=== PATIENT | male | born 1945 | race Caucasian/White ===

== ENCOUNTER 2024-03-16 09:22 | Emergency (ER) | payer MEDICARE, SELFPAY ==
--- NOTE | 2024-03-16 09:51 | ECG_ITS ---
[facility] Test Date: 2024-03-16 Pat Name: Jah Wu Department: Room: Gender: Male Licensed Nurse Practitioner: : 1945 Requested By: Tim Pierce Order Number: [id number] Izzy MD: Thai Baldwin M.D. Measurements Intervals [facility] Rate: 64 P: 34 WA: 141 QRS: 18 QRSD: 102 T: 40 QT: 391 QTc: 405 Interpretive Statements SINUS RHYTHM No previous ECG available for comparison Electronically Signed On 03-16-2024 22:26:28 CDT by Thai Baldwin M.D. [id number]
[2024-03-16 09:53] VITALS: BP 134/66; PULSE 65; RESP 20; TEMP 37; O2SAT 97; BMI 27.3
--- NOTE | 2024-03-16 10:09 | CTR_ITS ---
PROCEDURE INFORMATION: Exam: CT Head Without Contrast Exam date and time: 03/16/2024 10:10 AM Age: 78 years old Clinical indication: Stroke-like symptoms; Dizziness/giddiness; Additional info: Symptoms of acute stroke PT reports dizziness, nausea, and difficulty ambulating. PT states symptoms started at approx 0000 last night. PT sttes last well know was approx 1400 yesterday, PT is unsure of exact time of dizziness onset. PT bilateral in home tutor equal, TECHNIQUE: Imaging protocol: Computed tomography of the head without contrast. Radiation optimization: All CT scans at this facility use at least one of these dose optimization techniques: automated exposure control; mA and/or kV adjustment per patient size (includes targeted exams where dose is matched to clinical indication); or iterative reconstruction. Other technique: STROKE PROTOCOL was implemented. COMPARISON: No relevant prior studies available. RADIATION DOSE METRICS: Total DLP (mGy-cm): 1217.8 FINDINGS: Brain: There is moderate cerebral atrophy. There is mild diffuse heterogeneity of the white matter attenuation, consistent with chronic white matter ischemic changes. Negative for hemorrhage. Negative for mass. Negative for mass effect on the brain. Randle matter and white matter interfaces are unremarkable. Cerebral ventricles: No ventriculomegaly. Paranasal sinuses: Heterogeneous circumscribed mostly hyperdense mucosal lesion in the left sphenoid sinus. No fluid levels. Mastoid air cells: Visualized mastoid air cells are well aerated. Bones: Unremarkable. No acute fracture. Soft tissues: Unremarkable. CT/CT head thrombolytic [id number] IMPRESSION: Negative for acute intracranial pathology. ASSESSMENT: ASPECTS ([place] Stroke Program Early CT Score) is 10.
[2024-03-16 10:14] LABS: Glucose Point of Care 145 mg/dL (70-110)
[2024-03-16 10:40] LABS: Basophils % 0.2 %; Eosinophils # 0.1 10^3/uL (0.0-0.8); Eosinophils % 0.4 %; Hematocrit 46.8 % (37-53); Lymphocytes % 7.4 %; Mean Corpuscular HGB Conc 33.3 g/dL (30-55); Mean Corpuscular Hemoglobin 30.5 pg (27-33); Mean Corpuscular Volume 91.4 fl (82-101); Mean Platelet Volume 9.5 fL (7.4-10.4); Monocytes # 0.9 10^3/uL (0.2-0.9); Monocytes % 6.7 %; Neutrophils % 84.8 %; Nucleated Red Blood Cells % 0 %; Platelet Count 203 10^3/cmm (157-399); Red Blood Count 5.12 10^6/uL (3.85-5.65); Red Cell Distribution Width 12.4 % (12.1-15.1)
--- NOTE | 2024-03-16 10:46 | W.ED.DIZZY ---
HPI - Dizziness General: Chief Complaint: Dizziness Stated Complaint: reffer by rosa galindo Time Seen by Provider: 03/16/24 09:30 History of Present Illness: HPI Narrative: 78-year-old male presents to the emergency room states that she has dizziness and vertigo symptoms that began last night around midnight. He states he was not feeling well around 2 PM but did not have any dizziness or difficulty with speech or balance. Initially presented to Associated symptoms: Denies chest pain or chills Related Data Home Medications Medication Instructions Recorded Confirmed lisinopril 10 mg tablet 10 mg PO DAILY 03/16/24 03/16/24 metformin 500 mg tablet,extended 500 mg PO BID 03/16/24 03/16/24 release 24 hr silver sulfadiazine 1 % topical 1 applic topical BID 03/16/24 03/16/24 cream sulfamethoxazole 800 1 tab PO Q12H 03/16/24 03/16/24 mg-trimethoprim 160 mg tablet tamsulosin 0.4 mg capsule 1 mg PO DAILY 03/16/24 03/16/24 Previous Rx's Medication Instructions Recorded meclizine 25 mg tablet 25 mg PO QID PRN dizziness #14 tabs 03/16/24 Allergies Allergy/AdvReac Type Severity Reaction Status Date / Time No Known Allergies Allergy Verified 03/16/24 10:07 Review of Systems Const: Denies: fever(s) or chills Card: Denies: chest pain Resp: Denies: dyspnea GI: Denies: abdominal pain : Denies: dysuria, urinary frequency or urinary urgency Musc: Denies: neck pain or back pain Skin/Breast: Denies: rash Physical Exam Const: COMMON NORMALS: no acute distress GENERAL APPEARANCE: cooperative and comfortable ORIENTATION/CONSCIOUSNESS: Yes awake, Yes oriented to person, Yes oriented to place and Yes oriented to time HENMT: COMMON NORMALS: normocephalic, atraumatic and hearing grossly normal bilaterally HEAD & SCALP: normocephalic and atraumatic Resp: COMMON NORMALS: normal respiratory effort, No retractions, No use of accessory muscles and clear to auscultation bilaterally AUSCULTATION: clear to auscultation bilaterally Cardio: COMMON NORMALS: regular rate, regular rhythm and No murmurs present (Cardio) RATE: regular rate RHYTHM: regular rhythm GI: COMMON NORMALS: Soft to palpation and No hepatosplenomegaly present AUSCULTATION: Yes normoactive bowel sounds PALPATION: Yes Soft to palpation, No Tenderness to palpation present (GI), No Guarding due to palpation present (GI) and Yes No hepatosplenomegaly present Extremity: COMMON NORMALS: normal to inspection, capillary refill normal, no clubbing, cyanosis or edema, no calf tenderness and no pedal edema Neuro: SENSORIUM/ORIENTATION: Yes oriented to person, Yes oriented to place and Yes oriented to time Skin: COMMON NORMALS: no rashes or lesions noted GENERAL SKIN EXAM: no rashes or lesions noted Course Vital Signs: Vital signs: Vital Signs Temperature 98.6 F 03/16/24 09:53 Pulse Rate 81 03/16/24 13:31 Respiratory Rate 20 H 03/16/24 09:53 Blood Pressure 133/64 03/16/24 13:31 Pulse Oximetry 98 03/16/24 13:31 Oxygen Delivery Me thod Room Air 03/16/24 12:30 MDM - Dizziness Medical Decision Making Patient initially called the stroke alert he is outside the window for any kind of thrombolytics. He has a relatively normal exam the stroke score is 0. After evaluation completed we ambulated he did so without difficulty he is able to reproduce his dizziness with motion of his head particular looking to the left or to the right. Will discharge patient only use meclizine as needed. Do not believe patient an acute stroke I think this is more of positional vertigo which is reproducible initially and could tether to be after workup was completed. Lab Data 03/16/24 10:34 03/16/24 10:[address] 03/16/24 10:09 IMPRESSION: Negative for acute intracranial pathology. ASSESSMENT: ASPECTS ([place] Stroke Program Early CT Score) is 10. Laboratory Results WBC 13.20 10^3/uL (3.29-11.43) H 03/16/24 10:34 RBC 5.12 10^6/uL (3.85-5.65) 03/16/24 10:34 Hgb 15.60 g/dL (11.27-16.99) 03/16/24 10:34 Hct 46.8 % (37-53) 03/16/24 10:34 MCV 91.4 fl (82-101) 03/16/24 10:34 MCH 30.5 pg (27-33) 03/16/24 10:34 MCHC 33.3 g/dL (30-55) 03/16/24 10:34 RDW 12.4 % (12.1-15.1) 03/16/24 10:34 Plt Count 203 10^3/cmm (157-399) 03/16/24 10:34 MPV 9.5 fL (7.4-10.4) 03/16/24 10:34 Neut % (Auto) 84.8 % 03/16/24 10:34 Lymph % (Auto) 7.4 % 03/16/24 10:34 [place] % (Auto) 6.7 % 03/16/24 10:34 Eos % (Auto) 0.4 % 03/16/24 10:34 Baso % (Auto) 0.2 % 03/16/24 10:34 Neut # (Auto) 11.20 10^3/uL (1.8-7.7) H 03/16/24 10:34 Lymph # (Auto) 1.0 10^3/uL (0.8-4.8) 03/16/24 10:34 [place] # (Auto) 0.9 10^3/uL (0.2-0.9) 03/16/24 10:34 Eos # (Auto) 0.1 10^3/uL (0.0-0.8) 03/16/24 10:34 Baso # (Auto) 0.0 10^3/uL (0.0-0.1) 03/16/24 10:34 Nucleated RBC % (auto) 0 % 03/16/24 10:34 Nucleated RBCs # 0.0 /100WBC 03/16/24 10:34 PT 14.80 SECONDS (12.1-14.9) 03/16/24 10:34 INR 1.13 (0.8-1.2) 03/16/24 10:34 APTT 39.6 SECONDS (23.9-36.7) H 03/16/24 10:34 Sodium 133 mmol/L (136-145) L 03/16/24 10:34 Potassium 4.2 mmol/L (3.5-5.1) 03/16/24 10:34 Chloride 96 mmol/L (98-107) L 03/16/24 10:34 Carbon Dioxide 25 mmol/L (22-29) 03/16/24 10:34 Anion Gap 16.2 (5-19) 03/16/24 10:34 BUN 10 mg/dL (8-23) 03/16/24 10:34 Creatinine 0.9 mg/dL (0.7-1.2) 03/16/24 10:34 GFR Calculation Not Reportable 03/16/24 10:34 Glucose 161 mg/dL (65-115) H 03/16/24 10:34 POC Glucose 145 mg/dL (70-110) H 03/16/24 10:10 Calculated Osmolality 279 mOsm/kg (285-295) L 03/16/24 10:34 Calcium 9.2 mg/dL (8.5-10.5) 03/16/24 10:34 Total Bilirubin 1.5 mg/dL (0.15-1.2) H 03/16/24 10:34 AST 18 U/L (0-40) 03/16/24 10:34 ALT 16 U/L (0-41) 03/16/24 10:34 Alkaline Phosphatase 74 U/L (40-130) 03/16/24 10:34 Total Protein 8.0 g/dL (6.6-8.7) 03/16/24 10:34 Albumin 4.5 g/dL (3.5-5.2) 03/16/24 10:34 Globulin 3.5 g/dL (1.3-4.6) 03/16/24 10:34 All radiology interpretation(s) finalized by discharge Discharge Plan Discharge Patient Disposition: Home Clinical Impression: Benign paroxysmal positional vertigo Condition: Stable Prescriptions: New meclizine 25 mg tablet 25 mg PO QID PRN (Reason: dizziness) Qty: 14 0RF No Action silver sulfadiazine 1 % cream 1 applic TOPICAL BID sulfamethoxazole-trimethoprim 800-160 mg tablet 1 tab PO Q12H tamsulosin 0.4 mg capsule 1 mg PO DAILY lisinopril 10 mg tablet 10 mg PO DAILY metformin 500 mg tablet extended release 24 hr 500 mg PO BID Discharge Orders: Discharge ED (Routine); Ordered 03/16/24 Ordered By: Tim Morales Referrals: [facility],. [Primary Care Provider] - Discharge Diet: Usual diet Discharge Activity: Resume usual activity Patient Instructions: Opioid Safety, Pain Management Activity Restrictions/Additional Instructions: [facility] today. It is very important that you follow up as instructed or that you return to the Emergency Department should you have concerns or if your condition changes or worsens in any way. Your evaluated the emergency room for complaints of dizziness. Your stroke score was 0 CT of the head was negative. He will be discharged home with meclizine to use as needed if symptoms persist follow-up your primary care provider. Coding Level of Care Code ED Digital Marketing Specialist for Mer [facility] NIH stroke score NIHSS Level Of Consciousness - 1a: 0 Level Of Consciousness Questions - 1b: Both Correct Level Of Consciousness Commands - 1c: Both Correct Best Gaze - 2: Normal Visual Thomason - 3: No Visual Loss Facial Palsy - 4: Normal Motor Arm Right - 5: No Drift Motor Arm Left - 5: No Drift Motor Leg Right - 6: No Drift Motor Leg Left - 6: No Drift Limb Ataxia - 7: Absent Sensory - 8: Normal Best Language - 9: No Aphasia Dysarthia - 10: Normal Extinction And Inattention - 11: 0 Score Total Score: 0
[2024-03-16 10:53] LABS: INR 1.13 (0.8-1.2)
[2024-03-16 10:54] LABS: Partial Thromboplastin Time 39.6 SECONDS (23.9-36.7)
[2024-03-16 10:58] LABS: Alanine Aminotransferase 16 U/L (0-41); Albumin Level 4.5 g/dL (3.5-5.2); Alkaline Phosphatase 74 U/L (40-130); Anion Gap 16.2 (5-19); Aspartate Amino Transferase 18 U/L (0-40); Blood Urea Nitrogen 10 mg/dL (8-23); Calcium 9.2 mg/dL (8.5-10.5); Carbon Dioxide 25 mmol/L (22-29); Chloride 96 mmol/L (98-107); Creatinine Clr Calc Pharmacy 75.0479; Globulin 3.5 g/dL (1.3-4.6); Glucose 161 mg/dL (65-115); Osmolality Calculated 279 mOsm/kg (285-295); Potassium 4.2 mmol/L (3.5-5.1); Sodium 133 mmol/L (136-145); Total Bilirubin 1.5 mg/dL (0.15-1.2)
[2024-03-16 12:30] VITALS: BP 118/65; PULSE 80; O2SAT 98
[2024-03-16 13:31] VITALS: BP 133/64; PULSE 81; O2SAT 98
== END 2024-03-16 13:32 | disposition home or self-care (01) ==
PROVIDERS: Emergency Provider Family Medicine
DX: H81.10 Benign paroxysmal vertigo, unspecified ear (principal); Z79.84 Long term (current) use of oral hypoglycemic drugs
CPT/HCPCS: 36415; 36416; 70450; 80053; 82962; 85025; 85610; 85730; 93005; 99284

== ENCOUNTER 2024-09-25 08:21 | Outpatient (CLI) | payer MEDICARE, SELFPAY ==
--- NOTE | 2024-09-25 08:30 | MR_ITS ---
WS: [id number] MRI BRAIN WITHOUT CONTRAST HISTORY: VERTIGO COMPARISON: None available. TECHNIQUE: Diffusion imaging, multiplanar T1, T2 and FLAIR imaging obtained. Patient has declined IV contrast. No evidence for acute infarct or hemorrhage. Randle-white matter differentiation is normal. Moderate volume loss and atrophy. Scattered T2 and FLAIR signal hyperintensities are moderate from small vessel disease. Mild cerebellar atrophy. Ventricles and extra-axial spaces are normal. No inferior displacement of cerebellar tonsils. The sella turcica and pituitary gland are unremarkable. Dural venous sinuses and [place] of [place] demonstrate no abnormality on this unenhanced studies. Paranasal sinuses: Mucoperiosteal thickening with air-fluid level in the LEFT sphenoid sinus. Mastoid air cells: Normal. Calvarium and scalp: Intact. MR/MR head wo con* [id number] IMPRESSION: 1. No acute infarct or hemorrhage. 2. Moderate volume loss and small vessel disease. 3. LEFT acute sphenoid sinusitis.
== END 2024-09-25 08:22 | disposition home or self-care (01) ==
LOC: RAD 08:23
PROVIDERS: PCP Family Medicine; Visit Provider Family Medicine
DX: R42 Dizziness and giddiness (principal); R93.0 Abnormal findings on diagnostic imaging of skull and head, not elsewhere classified; I67.89 Other cerebrovascular disease; J32.3 Chronic sphenoidal sinusitis; G31.89 Other specified degenerative diseases of nervous system; J34.89 Other specified disorders of nose and nasal sinuses
CPT/HCPCS: 70551